=== PATIENT | female | born 1980 | race Caucasian/White ===

== ENCOUNTER → 2016-11-15 | Outpatient (CLI) | payer BC, MEDICAID ==
[~2016-11-15] MED LIST: GLYB1.253 PO; LABE100T2 PO; MEDR10 PO; NAPR-576 PO; PERC5TAB12 PO; VIST25CA PO; Z.0.BCPILL PO
== END ==
LOC: HPND 13:02
DX: O10.919 Unspecified pre-existing hypertension complicating pregnancy, unspecified trimester (principal); Z3A.00 Weeks of gestation of pregnancy not specified
CPT/HCPCS: 76811

== ENCOUNTER 2016-11-17 08:18 | Emergency (ER) | payer BC, MEDICAID ==
[~2016-11-17] VITALS: Ht 160 cm; Wt 130.0 kg
[~2016-11-17 08:18] MED LIST changes: -GLYB1.253 PO; -LABE100T2 PO; -VIST25CA PO
[2016-11-17 08:20] VITALS: BP 195/110; PULSE 77; RESP 15; TEMP 97.8; O2SAT 97
[2016-11-17 08:43] VITALS: BP 160/102
[2016-11-17] MEDS ORDERED: LABE100T2 PO (09:11)
[2016-11-17] MEDS ORDERED: VIST25CA PO (09:11)
[2016-11-17] MEDS ORDERED: GLYB1.253 PO (09:11)
--- NOTE | 2016-11-17 09:34 | PD ---
HPI Chief Complaint: Cold / Flu Symptoms Time Seen by Provider: 09:34 Travel History International Travel<30 days: No Contact w/Intl Traveler<30days: No Traveled to known affect area: No History of Present Illness HPI 36-year-old female, 29 weeks , presents to the emergency Department with complaint of cough, sore throat, nasal congestion since yesterday. Reports having a fever of 102.0 this morning at approximately 7 AM. She took Mucinex next day with minimal symptom relief. Denies lip and throat, difficulty swallowing, unusual drooling. Reports burning sensation in her throat. Says her throat is "on fire." Denies chest pain, shortness of breath, wheezing. Denies abdominal pain, nausea, vomiting, abdominal cramping, vaginal discharge or bleeding. Says she can feel the baby moving and is with normal activity. 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 History of hypertension and gestational diabetes. Takes labetalol and did not take her blood pressure medication this morning prior to coming to the ER. Did not receive influenza vaccine. No known allergies. No other modifying factors or associated signs and symptoms. PFSH Past Medical History Anxiety: Yes Diabetes: Yes Patient Takes Glucophage: No Hypertension: Yes ?: LMP: 29 WEEKS - 04/29/16 : 3 Para: 1 Miscarriage: 1 : 0 Dilation and Curettage (D&C): Yes Past Surgical History Section: Yes (X 1) Gynecologic Surgery: Yes (LAP FOR ENDOMETRIOSIS) Social History Alcohol Use: No Tobacco Use: Yes (< 1/2 PPD) Substance Use: No Allergies-Medications (Allergen,Severity, Reaction): Coded Allergies: No Known Allergies (Unverified , 09/28/14) Reported Meds & Prescriptions Reported Meds & Active Scripts Active Reported Vistaril (Hydroxyzine Pamoate) 25 Mg Cap 25 Mg PO HS Glyburide Unknown Strength Tab Unknown Dose PO BID Take with meals at the same time each day Labetalol (Labetalol HCl) 100 Mg Tab 100 Mg PO BID Review of Systems Except as stated in HPI: all other systems reviewed are Neg Physical Exam Narrative GENERAL: Well-nourished, well-developed female patient, in no acute distress; afebrile, nontoxic-appearing SKIN: Warm and dry. No rash. HEAD: Atraumatic. Normocephalic. EYES: Pupils equal and round at 3 mm with brisk reaction. No scleral icterus. No injection or drainage. PERRLA. ENT: Mucosa pink and moist. Oropharynx with erythema; without edema or exudates. No uvular edema. No uvular, palatal, or tonsillar deviation. Airway patent. EARS: Bilateral pinnae and external canals appear within normal limits. Bilateral tympanic membranes without erythema, dullness or perforation. NECK: Trachea midline. No lymphadenopathy. CARDIOVASCULAR: Regular rate and rhythm. No murmur appreciated. RESPIRATORY: No accessory muscle use. Clear to auscultation. Breath sounds equal bilaterally. No retractions or tachypnea. GASTROINTESTINAL: Abdomen soft, non-tender, nondistended. Hepatic and splenic margins not palpable. Bowel sounds are active 4 quadrants. MUSCULOSKELETAL: No obvious deformities. No clubbing. No cyanosis. No edema. NEUROLOGICAL: Awake and alert. Oriented 3. No obvious cranial nerve deficits. Motor grossly within normal limits. Normal speech. Moves all extremities. 5/5 strength to all extremities. PSYCHIATRIC: Appropriate mood and affect; insight and judgment normal. Data Data Last Documented VS Vital Signs Date Time Temp Pulse Resp B/P Pulse Ox O2 Delivery O2 Flow Rate FiO2 11/17/16 08:43 160/102 11/17/16 08:20 97.8 77 15 97 Orders Influenzae A/B Antigen (11/17/16 09:27) Group A Rapid Strep Screen (11/17/16 09:34) Strep Culture (Group A) (11/17/16 09:40) MDM Medical Decision Making Medical Screen Exam Complete: Yes Emergency Medical Condition: Yes Medical Record Reviewed: Yes Differential Diagnosis Viral illness, influenza, sinusitis, bronchitis Narrative Course 36-year-old female, 29 weeks , physical exam consistent with viral illness. She has been sick since yesterday. Lung sounds are clear and equal throughout. Patient is in no acute distress and oxygen saturation is 97% on room air. No retractions or tachypnea. Patient is afebrile and nontoxic- appearing. She does report MAXIMUM TEMPERATURE of 102.0 at home this morning. Denies abdominal pain, cramping, vaginal discharge or bleeding. Says the baby is moving with normal activity. Patient does have hypertension and is on labetalol. Her blood pressure is elevated in the ER and she says that she did not take her labetalol this morning, prior to coming to the ER. Rapid strep and influenza ordered. 1035: Rapid strep negative. Influenza negative. I discussed the patient with Dr. Faria, my attending physician, and she agrees with my treatment plan. Patient instructed to take labetalol as prescribed when she gets home and she verbalized understanding and agreement. Instructed patient to follow up with link cutter and she verbalized understanding and agreement. Discussed viral illness and symptom management. Patient verbalizes understanding and agreement with treatment plan. Patient is medically cleared and stable for discharge. Discussed reasons to return to the emergency department. Instructed patient to follow up with primary care provider. Patient agrees with treatment plan. The patients vital signs are stable and the patient is stable for outpatient follow- up and treatment. Patient discharged home, stable and in no acute distress. 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 Use an air humidifier/turn off ceiling fans Follow-up with your primary care provider Follow-up with link cutter Return immediately to the emergency department with worsening of symptoms Med/Other Pt SpecificInfo: No Change to Meds, No Meds Exist/No RX given Disposition: 01 DISCHARGE HOME Condition: Stable Poornima Arriaza Nov 17, 2016 09:34
== END 2016-11-17 10:57 | disposition home or self-care (01) ==
LOC: NEPB 08:18
DX: O26.93 Pregnancy related conditions, unspecified, third trimester (principal); B34.9 Viral infection, unspecified; E11.8 Type 2 diabetes mellitus with unspecified complications; I10 Essential (primary) hypertension; Z3A.29 29 weeks gestation of pregnancy
CPT/HCPCS: 87081; 87804; 87880; 99283

== ENCOUNTER 2017-01-08 01:24 | Emergency (ER) | payer BC, MEDICAID ==
[~2017-01-08 01:24] MED LIST changes: +GLYB1.253 PO; +LABE100T2 PO; -MEDR10 PO; -NAPR-576 PO; -PERC5TAB12 PO; +VIST25CA PO; -Z.0.BCPILL PO
--- NOTE | 2017-01-08 02:17 | PD ---
HPI Chief Complaint elevated blood glucose Date Seen: January 08, 2017 Travel History International Travel<30 Days: No Contact w/Intl Traveler<30Days: No Known Affected Area: No History of Present Illness HPI This is a 36y/o at 36w2d with known GDMA2 who presented to the [facility] with reports of elevated blood glucose at 3am. She states she at dinner at 9pm and fell sleep on the couch, she woke up at 3am and checked her blood glucose which was 300. Her dinner consisted of chicken wings, potato salad, 1/2 orange , strawberries and a few grapes. She denies headaches, chest pain, dizziness, vaginal bleeding, contractions or leakage of fluid with reports of active movements. care with Dr. Urban in [place], no records available for review, care complicated by: 1. Previous c/s times 1, has repeat c/s scheduled 2. GDMA2, Glyburide 2.5mg BID 3. likely chronic hypertension, on labetalol 300mg BID Para: 1 : 3 Miscarriage: 1 History Past Medical History Narrative Medical Endometriosis Obstetric History Obstetric History 12/18/01 38w Primary c/s for breech presenting fetus, Girl [id number], complicated by PreE Past Surgical History Narrative Surgical D&C times 1 C/s times 1 Family History Family History: Negative Social History Alcohol Use: No Tobacco Use: No Substance Abuse: No Allergies-Medications (Allergen,Severity, Reaction): Coded Allergies: No Known Allergies (Unverified , 09/28/14) Home Meds Reported Medications Hydroxyzine Pamoate (Vistaril)25 Mg Cap25 Mg PO HS Ref 0 11/17/16 Glyburide Unknown Strength TabUnknown Dose PO BID #60 TAB Ref 0 Take with meals at the same time each day 11/17/16 Labetalol 100 Mg [id number] Mg PO BID Ref 0 11/17/16 Review of Systems Except as stated in HPI: all other systems reviewed are Neg Physical Exam Narrative GENERAL: Well-nourished, well-developed patient. SKIN: Warm and dry. HEAD: Normocephalic and atraumatic. EYES: No scleral icterus. No injection or drainage. ENT: No nasal drainage noted. Mucous membranes pink. Airway patent. NECK: Supple, trachea midline. No JVD. CARDIOVASCULAR: Regular rate and rhythm without murmurs, gallops, or rubs. RESPIRATORY: Breath sounds equal bilaterally. No accessory muscle use. BREASTS: Bilateral exam showed no masses , no retractions, no nipple discharge. ABDOMEN/GI: Abdomen soft, non-tender, bowel sounds present, no rebound, no guarding Gravid to 37 weeks size GENITOURINARY: deferred Uterine Contractions:None FHT's: Category: Cat 1 EXTREMITIES: No cyanosis or edema. BACK: Nontender without obvious deformity. No CVA tenderness. NEUROLOGICAL: Awake and alert. Motor and sensory grossly within normal limits. Five out of 5 muscle strength in all muscle groups. Normal speech. Data Data Vital Signs Reviewed: Yes MDM Medical Record Reviewed: No Interpretation(s) 36w2d complicated by GDMA2 and likely pregestational hypertension. -reassuring status -no evidence of labor Plan D/c home discussed appropriate diet in depth and to avoid fruit sugars Patient Instructions: Movement (ED) Yany Small MD January 08, 2017 02:17
== END 2017-01-08 15:06 | disposition home or self-care (01) ==
LOC: HOBED 01:24
DX: O24.414 Gestational diabetes mellitus in pregnancy, insulin controlled (principal); I10 Essential (primary) hypertension; E13.65 Other specified diabetes mellitus with hyperglycemia; Z79.84 Long term (current) use of oral hypoglycemic drugs; Z3A.36 36 weeks gestation of pregnancy
CPT/HCPCS: 59025; 82948